=== PATIENT | male | born 1995 | race Caucasian/White ===

== ENCOUNTER 2025-03-20 11:57 | Outpatient (AMB) | payer BC, SELFPAY ==
--- NOTE | 2025-03-20 12:49 | MHC.OFFWIV ---
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 Patient Tobacco Use Status: Never used Tobacco Allergies No Known Allergies Allergy (Verified 03/20/25 14:42) Medication List - Last Reconciled 03/20/25 by KASSIE Chu- omeprazole 40 mg PO DAILY Do you need a note to return to daycare/school/sports/work: No HPI HPI Comments History of Present Illness Details History of Present Illness - The patient is a 30-year-old male presenting with abdominal pain, urethral pain, and dysuria. - Symptoms began two days ago after consuming pasta, with the onset of a growing bubble sensation and a popping sound in the abdomen. - Bloating ensued, causing severe discomfort and pain spreading across the abdomen, accompanied by sweating and chills. - He had a strong urge to urinate and sought medical attention the next morning @ [facility] ED. I do not have these records. - The patient was given an white liquid to drink, he does not know what, and prescribed medication at the emergency department to take for 2 weeks. Again unsure what. Reports no imaging and no labs done. - Pain has decreased but a tight sensation in the abdomen persists, occasionally alleviated after urination. - He reports no fever or testicular swelling. Physical Exam General: Well developed, well nourished, in no acute distress. Appears stated age. Head: Normocephalic, atraumatic. Eyes: Pupils are equal, round and reactive to light and accommodation. Conjunctivae are clear. Scleras nonicteric Lungs: Clear to auscultation bilaterally. No rales, rhonchi or wheeze noted. Good air flow in all mustafa. Heart: Regular rate and rhythm. No murmurs, click, rubs or gallops are noted. Abdomen: Bowel sounds present in all quadrants. The abdomen is soft, with a weird tightening sensation noted, and a bit of pain upon palpation of transverse lower abd. No CVAT exam benign Slow gaurded movements Results Urine WNL Discussion Notes I discussed with the patient the current symptoms. I emphasized the importance of obtaining imaging studies to rule out any serious intra-abdominal pathology, particularly due to the popping sensation and persistent tight feeling. I informed him about options for further evaluation at nearby [facility], and provided contact information for scheduling. I recommended that he proceed directly to the emergency room for evaluation and possible imaging. For future continuity of care, potential primary care providers nearby were suggested. Assessment and Plan 1. Abdominal pain The etiology of the abdominal pain is undetermined but significant enough to merit further examination through imaging at [facility]. I advised prompt evaluation to rule out potential gastrointestinal pathology. 2. Urethral pain As there were no overt signs of infection, follow-up with urology is recommended. Persistence of symptoms warrants further consideration of underlying urological causes. Patient Instructions - Proceed to [facility] Emergency Room for evaluation and potential imaging studies to assess abdominal discomfort. - Follow recommendations provided at the emergency department. - Consider consulting with a urologist if urethral pain continues. - Seek assistance from the front services agent for information on primary care providers in the area. Consent Patient was informed and verbally consented to the use of an ambient scribe for clinic note documentation during this visit. COUNTS INCLUDE 234 BEDS AT THE [facility] Social History Patient Tobacco Use Status: Never used Tobacco Physical Exam Vital Signs: Last Vital Signs Pulse 77 03/20/25 13:33 BP 110/70 03/20/25 13:33 Pulse Ox 98 03/20/25 13:33 Oxygen Delivery Method Room Air 03/20/25 13:33 Results AMB Urinalysis, Automated UA Leukoctes 0 Leonel/uL Last Edit by KODAK Cheek on 03/20/25 14:48 UA Nitrite Negative Last Edit by KODAK Cheek on 03/20/25 14:48 UA Urobilinogen 0.2 mg/dL Last Edit by Claudine Roldan CCM on 03/20/25 14:48 UA Protein 0 mg/dL Last Edit by KODAK Cheek on 03/20/25 14:48 UA pH 6.0 Last Edit by Claudine Roldan CCM on 03/20/25 14:48 UA Blood 0 Joey/uL Last Edit by Claudine Roldan CCM on 03/20/25 14:48 UA Specific [place] 1.010 Last Edit by KODAK Cheek on 03/20/25 14:48 UA Ketone Negative Last Edit by KODAK Cheek on 03/20/25 14:48 UA Bilirubin 0 mg/dL Last Edit by KODAK Cheek on 03/20/25 14:48 UA Glucose 0 mg/dL Last Edit by KODAK Cheek on 03/20/25 14:48 Results Reviewed Results Reviewed: Laboratory Last Values Urine pH (Auto) 6.0 03/20/25 14:46 Specific [place] (Auto) 1.010 03/20/25 14:46 Urine Protein (Auto) 0 mg/dL 03/20/25 14:46 Glucose (UA)(Auto) 0 mg/dL 03/20/25 14:46 Urine Ketones (Auto) Negative 03/20/25 14:46 Urine Blood (Auto) 0 Joey/uL 03/20/25 14:46 Urine Nitrite (Auto) Negative 03/20/25 14:46 Urine Bilirubin (Auto) 0 mg/dL 03/20/25 14:46 Urine Urobilinogen (Auto) 0.2 mg/dL 03/20/25 14:46 Leukocyte Esterase (Auto) 0 Leonel/uL 03/20/25 14:46 Assessment & Plan Assessment & Plan (1) Abdominal pain: Code(s): R10.9 - Unspecified abdominal pain Qualifiers: Abdominal location: lower abdomen, unspecified Qualified Code(s): R10.30 - Lower abdominal pain, unspecified (2) Urethral pain: Code(s): R39.89 - Other symptoms and signs involving the genitourinary system Plan . Orders: Orders AMB Urinalysis Automated Today Z13.9 - Encounter for screening, unspecified Patient Instructions: [facility] [address], [place] Coding Level of Care Code Est Pt Level 3 (45853) Diagnoses Lower abdominal pain R10.30 Abdominal location: lower abdomen, unspecified Urethral pain R39.89
--- OUTSIDE RECORDS SUMMARY | 2025-03-20 13:24 | XMS_ITS | Continuity of Care Document ---
Author Organization [employer] [facility] Address [address] [address] [place] [address] Phone Care Team Providers Care Hospital Account Manager Name Role Phone Celsa Smith DO Unavailable Unavailable Allergies, Adverse Reactions, Alerts Substance Reaction Status Criticality No Known Allergies Active No Inform ation Medications Medication Instructions Dosage Effective Dates (start - stop) Status Comments No Drug Therapy Prescribed Procedures Procedure Date Offic/outpt E m [facility] UA Dipstick Automated w/o Microscopy March Advance Directives Directive Yes / No Effective Date File Name No Information Encounters Encounter Description Practice Location Reason(s) For Visit Diagnoses Date Provider Providers Copied on Encounter [employer] [facility], [address] [address], [place], [place], [id number], tel:[phone] No Information Luis Steen. [address] [place], [place], [id number], . tel:[phone] Offic/outpt E m [facility], [address] [address], [place], [place], [id number], tel:[phone] [facility] Penile concerns (chief complaint)a bdominal pain (chief complaint) Penile pain Luis Steen. [address] [place], [place], [id number], . tel:[phone] Family History Family Member Type Diagnosis Age At Onset No Information Payers Payer name Insurance type Covered libertarian ID Authoriza ticynthia(s) [facility] [id number] Social History Type Description Quantity Date Captured Comments Alcohol Use Details Unknown Caffeine Use Details Unknown Tobacco Use Status No Information Smoking Status No Information Sex Male Chief Complaint And Reason For Visit No Information Reason For Referral Reason For Referral No Information History Of Present Illness Encounter Date Complaint History Of Prese nt Illness abdominal pain Penile concerns (comments) 22 yr old male here today with c/o penile tingling x2 days now. No recent intercourse, states it was 2 weeks ago. happens when lays on his back, but not when on front- slight pain barly feel some tingling sometimes goes away for a few hours. no dysuria, no fever, question some discharge. tingling mid shaft, on naproxen twice a day now. Penile concerns Functional Status Date Functional Assessmen t No Information Medications Administered Medication Instructions Dosage Effective Dates (start - stop) Status Comments No Drug Therapy Prescribed Instructions Date Instruction Additional Infor david 1- ua was normal2- c heck for GC/CHl3- if negative will refer to Urology Related to Penile pain Assessments Type Assessment Date No Information Patient Care Teams Name Effective Dates (start - stop) Status Members No Information
[2025-03-20 13:33] VITALS: BP 110/70; PULSE 77; O2SAT 98
== END 2025-03-20 14:42 | disposition home or self-care (01) ==
PROVIDERS: Visit Provider Nurse Practitioner Family
DX: R10.30 Lower abdominal pain, unspecified (principal); R39.89 Other symptoms and signs involving the genitourinary system; Z13.9 Encounter for screening, unspecified

== ENCOUNTER → 2025-03-20 11:57 | Outpatient (BNVA) | payer BC, SELFPAY | PROVIDERS: Visit Provider Nurse Practitioner Family | DX: Z13.89 Encounter for screening for other disorder (principal) ==

== ENCOUNTER 2025-03-20 14:33 | Emergency (ER) | payer BC, SELFPAY ==
--- NOTE | ~2025-03-20 | XR_ITS ---
EXAMINATION: XR ABDOMEN KUB CLINICAL INDICATION: abd pain COMPARISON: None available. TECHNIQUE: AP view of the abdomen. FINDINGS: Bowel gas pattern is normal/nonspecific. There is no focally dilated loop of bowel to suggest bowel obstruction. No significant stool retention. No evidence of organomegaly or large abdominal mass. No abnormal soft tissue calcifications. Lung bases appear clear. Mild elevation right hemidiaphragm. Chronic deformity of the right pelvis and hip joint with right hip arthroplasty in place, abundant heterotopic bone which is diffuse, and lateral plate and screw fixation of the proximal femur with 2 cerclage wires present. No suspicious osseous abnormalities. XR/XR KUB IMPRESSION: No acute findings of the abdomen. Electronically signed by: Paresh Keller MD 03/20/2025 03:11 PM EDT
--- NOTE | ~2025-03-20 | CT_ITS ---
CLINICAL HISTORY: RLQ pain, --- Additional Notes or Special Instructions: appy vs renal colic CT abdomen and pelvis without contrast Comparison: None Findings: No consolidation or effusion. The gallbladder and solid organs are within normal limits. Normal kidneys, ureters, and urinary bladder. No urinary tract calculus, obstruction, or inflammation. No bowel obstruction, pneumoperitoneum, or pneumatosis. Normal stomach, small bowel, appendix, and colon. Right total hip arthroplasty noted. Bones intact. IMPRESSION: No acute findings. This document has been electronically signed by: Carlos Sanchez MD on 03/20/2025 20:04:46
[2025-03-20 14:38] VITALS: BP 156/91; PULSE 68; RESP 20; TEMP 36.8; O2SAT 98; BMI 37.9
--- NOTE | 2025-03-20 14:38 | ED.ABDPAIN ---
HPI - Abdominal Pain General Chief Complaint: Abdominal Pain Stated Complaint: Abd pain Time Seen by Provider: 03/20/25 18:30 Source: patient Limitations: no limitations History of Present Illness ED Provider: Henna Tran PA-C HPI narrative: 30-year-old male with a history of morbid obesity presents with the abdominal pain x2 days. When the patient's symptoms began, he had associated abdominal distention. His last bowel movement was minimal, he is passing flatus from below. The abdominal distention has since resolved. Pain currently across lower abdomen, right greater than left. Pain worse with movement, with the radiation into groin, unable to describe the nature of his discomfort, but does indicate that it fluctuates in intensity. Patient initially had nausea, that resolved within a day. Patient complains of dysuria, no hematuria or history of kidney stones no fever. Denies diarrhea. Denies testicular pain or swelling, no risk for STD, the patient has been abstinent for years. Related Data Home Medications ?Medication ?Instructions ?Recorded ?Confirmed omeprazole 40 mg capsule,delayed 40 mg PO DAILY 03/20/25 03/20/25 release Previous Rx's ?Medication ?Instructions ?Recorded ketorolac 10 mg tablet 10 mg PO Q6H PRN pain #20 tabs 03/20/25 Allergies Allergy/AdvReac Type Severity Reaction Status Date / Time No Known Allergies Allergy Verified 03/20/25 14:42 Review of Systems Review of Systems Yes all other systems are reviewed and are negative Constitutional: Denies fatigue and Denies fever(s) Cardiovascular: Denies chest pain and Denies dyspnea Respiratory: Denies cough and Denies dyspnea Gastrointestinal: Reports abdominal pain, Reports constipation, Denies diarrhea, Denies nausea and Denies vomiting Genitourinary: Denies hematuria, Reports dysuria, Denies flank pain, Denies scrotal swelling and Denies testicular pain Endocrine: Denies fatigue PMFSH Past Medical History Attestation statement: The following information was validated with the patient. Social History Social History Alcohol intake: current Alcohol intake frequency: holidays/special occasions only Patient Tobacco Use Status: Never used Tobacco Smoked in Last 30 Days: No Use of substances other than those prescribed or required for medical reasons: No Advance Directives: No Advance Directives Information Provided: Yes Physical Exam ED Vital Signs: Vital Signs - 24 hr 03/20/25 14:38 03/20/25 18:35 03/20/25 20:03 Temperature 98.2 F 98.2 F 97.4 F Pulse Rate 68 62 48 L Respiratory Rate 20 20 16 Blood Pressure 156/91 H 134/89 122/59 L Pulse Oximetry 98 98 96 Oxygen Delivery Method Room Air Room Air Room Air BMI result Body Mass Index 37.9 Const Other: Alert, appears older than stated age Orientation/consciousness: patient oriented x3 Resp Effort & Inspection: normal respiratory effort Cardio Other: Normal peripheral perfusion GI Other: Abdomen is obese, nondistended, mild tenderness within right lower abdomen no guarding Skin Other: Warm dry no rash Neuro Other: Antalgic gait General: patient oriented x3, no focal motor deficits and CN's II-XI intact bilaterally Psych Other: Cooperative Course Course Course Narrative: This is a rapid medical exam performed by Amador Oconnor NP: Additional HPI, ROS, PE not included below will be deferred to primary provider. 30 yo male with no significant PMHx presents to the ED due to abdominal pain. He states he went to [facility] yesterday and did not have imaging done. Today, he is coming from walk in clinic just [employer]ELD[employer], was recommended to come to the ED for further evaluation. He reports while he was at walk in [facility] he experienced an episode of urinary urgency. He reports abd px started 2 days ago around 7pm after eating. He reports nausea, chills, bloating. He denies vomiting, black/bloody stool. PE: Plan: Medical Decision Making Medical Decision Making [facility] Narrative: 30-year-old male with a history of morbid obesity presents with the abdominal pain x2 days. When the patient's symptoms began, he had associated abdominal distention. His last bowel movement was minimal, he is passing flatus from below. The abdominal distention has since resolved. Pain currently across lower abdomen, right greater than left. Pain worse with movement, with the radiation into groin, unable to describe the nature of his discomfort, but does indicate that it fluctuates in intensity. Patient initially had nausea, that resolved within a day. Patient complains of dysuria, no hematuria or history of kidney stones no fever. Denies diarrhea. Denies testicular pain or swelling, no risk for STD, the patient has been abstinent for years. Problem: Morbid obesity, status post right hip replacement History: Per patient I have considered the following differential diagnoses: UTI, pyelonephritis, renal colic, orchitis, epididymitis, torsion, bowel obstruction, appendicitis Plan: Given right-sided symptoms I am considering early appendicitis versus renal colic given concurrent urinary symptoms. Screening labs completed, UA pending, ordering a CT scan. Giving Toradol for his discomfort. Also thought about torsion versus epididymitis and orchitis, however he has no testicular pain, swelling or redness to the region. Sounds as if patient initially had potential symptoms of bowel obstruction, however they were transient, and he is having bowel movements. Initially a KUB was obtained, there was no overt stool burden. I have independently reviewed the following tests: Labs: No leukocytosis, not anemic, no electrolyte abnormality, urine not infected CT abdomen and pelvis:Findings: No consolidation or effusion. The gallbladder and solid organs are within normal limits. Normal kidneys, ureters, and urinary bladder. No urinary tract calculus, obstruction, or inflammation. No bowel obstruction, pneumoperitoneum, or pneumatosis. Normal stomach, small bowel, appendix, and colon. Right total hip arthroplasty noted. Bones intact. IMPRESSION: No acute findings. Lab Data 03/20/25 14:59 03/20/25 14:59 Labs: Lab Results 03/20/25 03/20/25 Range/Units 14:59 19:06 WBC 7.5 (4.8-10.8) X10*3/uL RBC 5.78 (4.60-5.80) X10*6/uL Hgb 15.1 (14.0-18.0) g/dl Hct 44.0 (42.0-52.0) % MCV 76.1 L (80.0-98.0) fL MCH 26.1 L (27.0-33.0) pg MCHC 34.3 (31.0-36.0) g/dl RDW 14.3 (11.0-16.0) % Plt Count 292 (160-400) X10*3/uL MPV 9.6 (9.4-12.4) fL Immature Gran % (Auto) 0.1 (0.0-0.4) % Neut % (Auto) 66.4 (45-73) % Lymph % (Auto) 25.3 (20-40) % Stearns % (Auto) 7.0 (2-11) % Eos % (Auto) 0.7 (0-4) % Baso % (Auto) 0.5 (0-2) % Lymph # (Auto) 1.9 (1.2-4.9) X10*3/uL Stearns # (Auto) 0.5 (0.1-1.2) X10*3/uL Eos # (Auto) 0.1 (0.0-0.4) X10*3/uL Baso # (Auto) 0.0 (0.0-0.2) X10*3/uL Abs Immat Gran (auto) 0.01 (0.00-0.03) X10*3/uL Absolute Neuts (auto) 5.0 (2.0-8.3) x10*3/uL Absolute Nucleated RBC 0.000 (0.0-0.012) X10*3/uL Nucleated RBC % (auto) 0.0 (0.0-0.2) /100WBC Sodium 140 (135-145) mmol/L Potassium 3.5 (3.3-5.1) mmol/L Chloride 105 (96-108) mmol/L Carbon Dioxide 24 (22-29) mmol/L Anion Gap 15 (12-20) BUN 11 (9-16) mg/dL Creatinine 0.97 (0.5-1.4) mg/dL Estim Creat Clear Calc 143.1 Estimated GFR > 60 Random Glucose 88 (60-115) mg/dL Calcium 9.4 (8.4-10.2) mg/dL Total Bilirubin 0.6 (0.0-1.0) mg/dL AST 36 (5-37) U/L ALT 37 (0-40) U/L Alkaline Phosphatase 45 (39-117) U/L Total Protein 7.6 (6.5-8.0) g/dL Albumin 4.7 (3.5-5.0) g/dL Lipase 20 (8-78) U/L Urine Color Yellow Urine Appearance Clear Urine pH 6.0 (5.0-9.0) Ur Specific [place] 1.025 (1.005-1.025) Urine Protein Negative (Neg-Trace) mg/dL Urine Glucose (UA) Negative (Negative) mg/dL Urine Ketones 80 (Negative) mg/dL Urine Blood Negative (Negative) Urine Nitrite Negative (Negative) Ur Leukocyte Esterase Negative (Negative) Medications Administered Discontinued Medications Generic Name Dose Route Start Last Admin Trade Name Stanq PRN Reason Stop Dose Admin Ketorolac Tromethamine 15 mg 03/20/25 19:03 03/20/25 19:17 Ketorolac Tromethamine 15 Mg/Ml Vial IM 03/20/25 19:04 15 mg ONCE ONE Administration Discharge Plan Discharge Clinical Impression: Dysuria Abdominal pain Qualifiers: Abdominal location: lower abdomen, unspecified Qualified Code(s): R10.30 - Lower abdominal pain, unspecified Patient Disposition: Home, Self-Care Instructions: Constipation (ED), Dysuria (ED), Abdominal Pain (ED) Additional Instructions: All of your screening labs including a urinalysis were completely normal. The CT scan does not reveal any acute infection. You do have some retained stool, but you were not overtly constipated. See home care instructions. You can use [id number] Colace, this is a stool softener, take it daily. You can also use [id number] MiraLax, 1 to 2 times a day, until you begin having regular bowel movements. Use the ketorolac as needed for your abdominal discomfort, take this medication with food. Return precautions, which would necessitate medical assessment, for onset of severe constant abdominal pain, intractable vomiting or fever. Prescriptions: New ketorolac 10 mg tablet 10 mg PO Q6H PRN (Reason: pain) Qty: 20 0RF Rx Instructions: maximum total duration of 5 days from all oral, intranasal, or parenteral formulations. The patient received an intramuscular dose of Toradol here in the emergency department. No Action omeprazole 40 mg capsule,delayed release(DR/EC) 40 mg PO DAILY Stand Alone Forms: Work/School Release Print Language: Azerbaijani
[2025-03-20 15:03] LABS: MANUAL DIFF FLAG NO
[2025-03-20 15:04] LABS: Basophils Percent Auto 0.5 % (0-2); Eosinophils Absolute Auto 0.1 X10*3/uL (0.0-0.4); Eosinophils Percent Auto 0.7 % (0-4); Hemoglobin 15.1 g/dl (14.0-18.0); Imm Gran Abs Auto 0.01 X10*3/uL (0.00-0.03); Imm Gran Pct Auto 0.1 % (0.0-0.4); Lymphocytes Absolute Auto 1.9 X10*3/uL (1.2-4.9); Lymphocytes Percent Auto 25.3 % (20-40); Mean Corpuscular HGB Conc 34.3 g/dl (31.0-36.0); Mean Corpuscular Hemoglobin 26.1 pg (27.0-33.0); Mean Corpuscular Volume 76.1 fL (80.0-98.0); Mean Platelet Volume 9.6 fL (9.4-12.4); Monocytes Absolute Auto 0.5 X10*3/uL (0.1-1.2); Neutrophils Percent Auto 66.4 % (45-73); Platelet Count 292 X10*3/uL (160-400); Red Blood Count 5.78 X10*6/uL (4.60-5.80); Red Cell Distribution Width 14.3 % (11.0-16.0); White Blood Count 7.5 X10*3/uL (4.8-10.8)
[2025-03-20 15:34] LABS: Alanine Aminotransferase 37 U/L (0-40); Albumin Level 4.7 g/dL (3.5-5.0); Anion Gap 15 (12-20); Aspartate Amino Transferase 36 U/L (5-37); Bilirubin Total 0.6 mg/dL (0.0-1.0); Blood Urea Nitrogen 11 mg/dL (9-16); Calcium 9.4 mg/dL (8.4-10.2); Carbon Dioxide 24 mmol/L (22-29); Chloride 105 mmol/L (96-108); Creatinine Clr Calc Pharmacy 143.1; Estimated Glomerular Filt Rate > 60; Glucose Random 88 mg/dL (60-115); Lipase 20 U/L (8-78); Potassium 3.5 mmol/L (3.3-5.1); Sodium 140 mmol/L (135-145); Total Protein 7.6 g/dL (6.5-8.0)
[2025-03-20 16:08] LABS: Alkaline Phosphatase 45 U/L (39-117)
[2025-03-20 18:35] VITALS: BP 134/89; PULSE 62; RESP 20; TEMP 36.8; O2SAT 98
[2025-03-20] MEDS: Ketorolac Tromethamine 15 MG/ML VIAL IM (19:17)
[2025-03-20 20:03] VITALS: BP 122/59; PULSE 48; RESP 16; TEMP 36.3; O2SAT 96
[2025-03-20 21:01] LABS: Appearance Urine Clear; Color Urine Yellow; Glucose Urine UA Negative (Negative); Leukocyte Esterase Urine Negative (Negative); Nitrite Urine Negative (Negative); Specific Gravity - Urine 1.025 (1.005-1.025); Urine Blood Negative (Negative); Urine Ketones 80 mg/dL (Negative); Urine Protein Negative (Neg-Trace)
[2025-03-20 22:03] VITALS: BP 124/65; PULSE 46; RESP 16; TEMP 36.2; O2SAT 96
[2025-03-20 22:09] VITALS: BP 124/65; PULSE 62; RESP 16; TEMP 36.2; O2SAT 96
== END 2025-03-20 22:10 | disposition home or self-care (01) ==
PROVIDERS: Registered Nurse Emergency; Emergency Provider Emergency Medicine
DX: R10.31 Right lower quadrant pain (principal); R30.0 Dysuria
CPT/HCPCS: 36415; 74018; 74176; 80053; 81003; 83690; 85025; 96372; 99284; J1885

== ENCOUNTER → 2025-03-20 14:43 | Outpatient (BNV) | payer BC, SELFPAY | PROVIDERS: Visit Provider Radiology Diagnostic Radiology | DX: R10.31 Right lower quadrant pain (principal) | CPT/HCPCS: 74018; 74176 ==

== ENCOUNTER 2025-03-24 05:05 | Emergency (ER) | payer BC, SELFPAY ==
[2025-03-24 05:11] VITALS: BP 155/110; PULSE 63; RESP 16; TEMP 36.1; O2SAT 96; BMI 35.9
--- OUTSIDE RECORDS SUMMARY | 2025-03-24 06:55 | XMS_ITS | Clinical Summary ---
Author Organization [facility] [address] [place] [address] [address], [place] Phone Care Team Providers Care Associate Professor Of Sociology Name Role Phone Unavailable Primary Care Provider Unavailabl e Allergies No known active allergies Medications omeprazole (PriLOSEC) [address] capsule Take 1 capsule (40 mg total) by mouth 1 (one) time each day for 14 days. Do not crush or chew. 14 each 03/19/2025 5 Active Active Problems No known active problems Encounters Date Type Department Care Team Description 03/19/2025 1:28 PM EDT - 03/19/2025 3:51 PM EDT Emergency [facility] Emergency [address] [place] [address] Gastroesophageal reflux disease without esophagitis (Primary Dx); Dysuria Discharge Disposition: Home or Self Care from Last 3 Months Social History Tobacco Use Types Packs/Day Years Used Date Smoking Tobacco: Never Assessed Sex and Gender Information Value Date Recorded Sex Assigned at Male 03/21/2025 2:10 AM EDT Legal Sex Male 9:32 AM EDT Gender Identity Male 03/21/2025 2:10 AM EDT Sexual Orientation Straight 03/21/2025 2: 10 AM EDT Obstetrics History Last Filed Vital Signs Vital Sign Reading Time Taken Comments Blood Pressure 139/72 03/19/2025 2:11 PM EDT Pulse 61 03/19/2025 2:11 PM EDT Temperature 37.2 ??C (99 ??F) 03/19/2025 2:11 PM EDT Respiratory Rate 18 03/19/2025 2:11 PM EDT Oxygen Saturation 95% 03/19/2025 2:11 PM EDT Inhaled Oxygen Concentration - - Weight 120 kg (265 lb 4.8 oz) 03/19/2025 11:01 A M EDT Height 177.8 cm (5' 10 ) 03/19/2025 11:01 AM EDT Body Mass Index 38.07 03/19/2025 11:01 AM EDT Plan of Treatment Health Maintenance Due Date Last Done Comments DTaP,Tdap,and Td Vaccines (1 - Tdap) 2013 Hepatitis B Vaccines (1 of 3 - 19+ 3-dose series) 2013 COVID-19 Vaccine (2023-2 5 season) 2024 10/22/2021, 01/18/2021, 12/17/2020 Depression Screening 03/19/2025 HIV Screening 03/19/2025 Hepatitis C Screening 03/19/2025 Social Influencers of Health Screening 03/19/2025 Influenza Vaccine (Season Ended) 2025 01/14/2020, 12/03/2018 HIB Vaccines Aged Out No longer eligi ble based on patient's age to complete this topic HPV Vaccines Aged Out No longer eligi ble based on patient's age to complete this topic Hepatitis A Vaccines Aged Out No long er eligible based on patient's age to complete this topic IPV Vaccines Aged Out No longer eligi ble based on patient's age to complete this topic MMR Vaccines Aged Out No longer eligi ble based on patient's age to complete this topic Meningococcal ACWY Vaccine Aged Out N o longer eligible based on patient's age to complete this topic Meningococcal B Vaccine Aged Out No l onger eligible based on patient's age to complete this topic Pneumococcal Vaccine: Pediatrics (0 to 5 Years) and At-Risk Patients (6 to 64 Years) Aged Out No longer eligible b ased on patient's age to complete this topic RSV Immunization Patients Under 20 months Aged Out No longer eligible b ased on patient's age to complete this topic Varicella Vaccines Aged Out No longer eligible based on patient's age to complete this topic Procedures Procedure Name Priority Date/Time Associated Diagnosis Comments LEVINE URINE CULTURE TUBE STAT 03/19/2025 2:06 PM EDT URINALYSIS WITH REFLEX MICROSCOPIC AND CULTURE STAT 03/19/2025 2:06 PM EDT URINALYSIS WITH REFLEX MICROSCOPIC AND CULTURE STAT 03/19/2025 2:06 PM EDT CBC WITH AUTO DIFFERENTIAL STAT 03/19/2025 11:10 AM EDT COMPREHENSIVE METABOLIC PANEL STAT 03/19/2025 11:10 AM EDT CBC AND DIFFERENTIAL STAT 03/19/2025 11:10 AM EDT from Last 3 Months Results * (ABNORMAL) Urinalysis with reflex microscopic and culture (03/19/2025 2:06 PM EDT) Pathologist [facility] Specific [place] Urine 1.020 1.003 - 1.030 LAB URINALYSIS - AUTOMATED METHOD 03/19/2025 3:09 PM [facility] pH, Urine 6.5 5.0 - 8.0 pH LAB URINALYSIS - AUTOMATED METHOD 03/19/2025 3:09 PM [facility] Leukocytes, Urine Negative Negative LAB URINALYSIS - AUTOMATED METHOD 03/19/2025 3:09 PM [facility] Nitrite, Urine Negative Negative LAB URINALYSIS - AUTOMATED METHOD 03/19/2025 3:09 PM [facility] Protein, Urine Negative <=Trace mg/dL LAB URINALYSIS - AUTOMATED METHOD 03/19/2025 3:09 PM [facility] Glucose, Urine Negative Negative mg/dL LAB URINALYSIS - AUTOMATED METHOD 03/19/2025 3:09 PM [facility] Ketones, Urine >=80(A) Negative mg/dL LAB URINALYSIS - AUTOMATED METHOD 03/19/2025 3:09 PM [facility] Urobilinogen, Urine 0.2 0.2 - 1.0 mg/dL LAB URINALYSIS - AUTOMATED METHOD 03/19/2025 3:09 PM EDT [facility] Bilirubin, Urine Negative Negative LAB URINALYSIS - AUTOMATED METHOD 03/19/2025 3:09 PM EDT [facility] Blood, Urine Negative Negative LAB URINALYSIS - AUTOMATED METHOD 03/19/2025 3:09 PM EDT [facility] Urine Urine specimen obtained by clean catch procedure / Unknown Non-blood Collection / Unknown 03/19/2025 2:06 PM EDT 03/19/2025 2:35 PM EDT [facility] URINE ORDERABLES Final Result Performing Organization Address [facility]/ZIP Co de Phone Number [facility] [address] [place] [address], [place] [phone] * Levine urine culture tube (03/19/2025 2:06 PM EDT) Extra Tube Hold for add-ons. 03/19/2025 4:01 PM EDT [facility] Comment:Auto resulted. Urine Urine specimen obtained by clean catch procedure / Unknown Non-blood Collection / Unknown 03/19/2025 2:06 PM EDT 03/19/2025 2:35 PM EDT [facility] URINE ORDERABLES Final Result [facility] [address] [place] [address], [place] [phone] * (ABNORMAL) CBC auto differential (03/19/2025 11:10 AM EDT) WBC 8.2 4.8 - 10.8 K/[facility] LAB HEMETOLOGY METHOD 03/19/2025 11:35 AM EDT [facility] RBC 5.70(H) 4.50 - 5.50 M/mcL LAB HEMETOLOGY METHOD 03/19/2025 11:35 AM [facility] Hemoglobin 14.7 13.5 - 17.5 g/dL LAB HEMETOLOGY METHOD 03/19/2025 11:35 AM [facility] Hematocrit 44.8 42.0 - 54.0 % LAB HEMETOLOGY METHOD 03/19/2025 11:35 AM [facility] MCV 78.3(L) 79.0 - 98.0 FL LAB HEMETOLOGY METHOD 03/19/2025 11:35 AM [facility] MCH 25.7(L) 27.0 - 32.0 pcg LAB HEMETOLOGY METHOD 03/19/2025 11:35 AM [facility] MCHC 32.8 32.0 - 37.0 g/dL LAB HEMETOLOGY METHOD 03/19/2025 11:35 AM [facility] RDW 14.2 11.0 - 15.0 % LAB HEMETOLOGY METHOD 03/19/2025 11:35 AM [facility] Platelets 306 130 - 400 K/mcL LAB HEMETOLOGY METHOD 03/19/2025 11:35 AM [facility] MPV 10.1 7.0 - 11.0 FL LAB HEMETOLOGY METHOD 03/19/2025 11:35 AM [facility] NRBC 0.0 <1.0 % LAB HEMETOLOGY METHOD 03/19/2025 11:35 AM [facility] NRBC Absolute 0.00 <0.10 K/mcL LAB HEMETOLOGY METHOD 03/19/2025 11:35 AM [facility] Neutrophils Relative 74.9 % LAB HEMETOLOGY METHOD 03/19/2025 11:35 AM [facility] Lymphocytes Relative 19.2 % LAB HEMETOLOGY METHOD 03/19/2025 11:35 AM [facility] Monocytes Relative 5.4 % LAB HEMETOLOGY METHOD 03/19/2025 11:35 AM [facility] Eosinophils Relative 0.1 % LAB HEMETOLOGY METHOD 03/19/2025 11:35 AM [facility] Basophils Relative 0.2 % LAB HEMETOLOGY METHOD 03/19/2025 11:35 AM [facility] Immature Granulocytes Relative 0.2 % LAB HEMETOLOGY METHOD 03/19/2025 11:35 AM [facility] Neutrophils Absolute 6.12 1.50 - 7.00 K/mcL LAB HEMETOLOGY METHOD 03/19/2025 11:35 AM [facility] Lymphocytes Absolute 1.57 1.00 - 5.00 K/mcL LAB HEMETOLOGY METHOD 03/19/2025 11:35 AM [facility] Monocytes Absolute 0.44 0.20 - 1.00 K/mcL LAB HEMETOLOGY METHOD 03/19/2025 11:35 AM [facility] Eosinophils Absolute 0.01 0.00 - 0.50 K/mcL LAB HEMETOLOGY METHOD 03/19/2025 11:35 AM [facility] Basophils Absolute 0.02 0.00 - 0.20 K/mcL LAB HEMETOLOGY METHOD 03/19/2025 11:35 AM [facility] Immature Granulocytes Absolute 0.02 0.00 - 0.03 K/mcL LAB HEMETOLOGY METHOD 03/19/2025 11:35 AM [facility] Blood Venous blood specimen / Unknown Venipuncture / Unknown 03/19/2025 11:10 AM EDT 03/19/2025 11:18 AM EDT us Chava Hernandez MD LAB BLOOD ORDERABLES Final Resu lt [facility] [address] [place] [address], * Comprehensive metabolic panel (03/19/2025 11:10 AM EDT) Sodium 140 133 - 145 mmol/L LAB CHEMISTRY METHOD 03/19/2025 11:57 AM EDT [facility] Potassium 3.5 3.5 - 5.5 mmol/L LAB CHEMISTRY METHOD 03/19/2025 11:57 AM EDT [facility] Chloride 108 96 - 110 mmol/L LAB CHEMISTRY METHOD 03/19/2025 11:57 AM [facility] CO2 24 21 - 32 mmol/L LAB CHEMISTRY METHOD 03/19/2025 11:57 AM [facility] Anion Gap 8 3 - 11 LAB CHEMISTRY METHOD 03/19/2025 11:57 AM [facility] Glucose 98 70 - 100 mg/dL LAB CHEMISTRY METHOD 03/19/2025 11:57 AM [facility] BUN 7 5 - 25 mg/dL LAB CHEMISTRY METHOD 03/19/2025 11:57 AM [facility] Creatinine 0.98 0.70 - 1.30 mg/dL LAB CHEMISTRY METHOD 03/19/2025 11:57 AM [facility] eGFR 106 >=60 mL/min/1. 73m2 LAB CHEMISTRY METHOD 03/19/2025 11:57 AM [facility] Comment:Calculation based on the Chronic Kidney Disease Epidemiology Collaboration (CKD-EPI) equation refit without adjustment for race. BUN/Creatinine Ratio 7.1 LAB CHEMISTRY METHOD 03/19/2025 11:57 AM [facility] Calcium 9.5 8.5 - 10.5 mg/dL LAB CHEMISTRY METHOD 03/19/2025 11:57 AM [facility] AST (SGOT) 26 10 - 42 unit/L LAB CHEMISTRY METHOD 03/19/2025 11:57 AM EDT [facility] ALT (SGPT) 40 10 - 60 unit/L LAB CHEMISTRY METHOD 03/19/2025 11:57 AM EDT [facility] Alkaline Phosphatase 52 42 - 121 unit/L LAB CHEMISTRY METHOD 03/19/2025 11:57 AM EDT [facility] Total Protein 7.7 6.0 - 8.0 g/dL LAB CHEMISTRY METHOD 03/19/2025 11:57 AM EDT [facility] Albumin 4.6 3.2 - 5.0 g/dL LAB CHEMISTRY METHOD 03/19/2025 11:57 AM EDT [facility] Total Bilirubin 0.6 0.0 - 1.4 mg/dL LAB CHEMISTRY METHOD 03/19/2025 11:57 AM EDT [facility] Blood Venous blood specimen / Unknown Venipuncture / Unknown 03/19/2025 11:10 AM EDT 03/19/2025 11:18 AM EDT us Chava Hernandez MD LAB BLOOD ORDERABLES Final Resu lt [facility] [address] [place] [address], [place] [phone] from Last 3 Months Insurance [facility]
--- OUTSIDE RECORDS SUMMARY | 2025-03-24 06:55 | XMS_ITS | Continuity of Care Document ---
Author Organization [employer] [facility] Address [address] [address] [place] [address] Phone Care Team Providers Care Forms Designer Name Role Phone Celsa Smith DO Unavailable Unavailable Allergies, Adverse Reactions, Alerts Substance Reaction Status Criticality No Known Allergies Active No Inform ation Medications Medication Instructions Dosage Effective Dates (start - stop) Status Comments No Drug Therapy Prescribed Procedures Procedure Date Offic/outpt E m [facility] UA Dipstick Automated w/o Microscopy March Advance Directives Directive Yes / No Effective Date File Name No Information Encounters Encounter Description Practice Location Reason(s) For Visit Diagnoses Date Provider Providers Copied on Encounter [employer] [facility], [address] [address], [place], [place], [id number], tel:[phone] No Information Luis Steen. [address] [place], [place], [id number], . tel:[phone] Offic/outpt E m [facility] [employer] [facility], [address] [address], [place], [place], [id number], tel:[phone] [facility] Penile concerns (chief complaint)a bdominal pain (chief complaint) Penile pain Luis Steen. [address] [place], [place], [id number], . tel:[phone] Family History Family Member Type Diagnosis Age At Onset No Information Payers Payer name Insurance type Covered libertarian ID Authoriza ticynthia(s) [facility] [id number] Social History Type Description Quantity Date Captured [...]
--- OUTSIDE RECORDS SUMMARY | 2025-03-24 06:55 | XMS_ITS | Encounter Summary ---
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 Emergency [address] [place] [address] Gastroesophageal reflux disease without esophagitis (Primary Dx); Dysuria Discharge Disposition: Home or Self Care Social History Tobacco Use Types Packs/Day Years Used Date Smoking Tobacco: Never Assessed Sex and Gender Information Value Date Recorded Sex Assigned at Male 03/21/2025 2:10 AM EDT Legal Sex Male 9:32 AM EDT Gender Identity Male 03/21/2025 2:10 AM EDT Sexual Orientation Straight 03/21/2025 2: 10 AM EDT documented as of this encounter Last Filed Vital Signs Vital Sign Reading [...] Mass Index 38.07 03/19/2025 11:01 AM EDT documented in this encounter Discharge Instructions * Discharge Instructions* BAKARI Caruso - 03/19/2025 3:21 PM EDT I am discharging you home with omeprazole that you can take once daily for the next 2 weeks. Additionally, I would like you to follow-up with urology as an outpatient if your dysuria persists. [facility] can be reached by calling [phone]. Please call tomorrow to schedule outpatient follow-up. If you do not have a PCP of record, referrals are given. Follow up with your primary provider. Call tomorrow for appointment. Return to Emergency Department if symptoms worsen, do not improve, or any other concern. Get well soon! Thank you for coming to the [facility] Emergency Department today. Our entire team works together to provide you with the best care possible. Examination and treatment you received in the emergency department has been rendered on an EMERGENCY basis only. It is not intended to be a substitute for or an effort to provide complete medical care. You should follow-up with your primary care provider. Please report to your physician any new or remaining problems, because it is impossible to recognize and treat all elements of injury or illness in a single emergency department visit. In the event that you're unable to obtain a followup appointment in a timely fashion, OR you are not getting any better, OR you are getting worse, OR you develop any symptoms of concern, please return here immediately for further evaluation. The emergency department is open 24 hours a day, 7 days aweek. Your discharge report is based on information that was available when you were in the emergency department. If you do not have a primary care provider, please contact one of the following to make arrangements to follow up. Asya Bernard Asya Melstone [facility] * Attachments The following attachments cannot be sent through Care Everywhere. * Acid-Reducing Medicines: General Info (Albanian) documented in this encounter Medications at Time of Discharge omeprazole (PriLOSEC) [address] capsule Take 1 capsule (40 mg total) by mouth 1 (one) time each day for 14 days. Do not crush or chew. 14 each 03/19/2025 04/02/2025 documented as of this encounter Ordered Prescriptions Prescription Sig Dispense Quantity Refills Last Filled Start Date End Date omeprazole (PriLOSEC) [address] capsule Take 1 capsule (40 mg total) by mouth 1 (one) time each day for 14 days. Do not crush or chew. 14 each 03/19/2025 documented in this encounter Discharge Disposition Disposition Code Departure Means Destination Comment s Home or Self Care Pt ambulatory out of ed with steady gait. documented in this encounter Progress Notes * Cam Leger RN - 03/19/2025 10:57 AM EDT Patient states he has had bloating,abdominal pain, after eating last night. States has had gallbladder removed. * BAKARI Caruso - 03/19/2025 10:55 AM EDT Emergency Medicine Note Patient Name: Shayy Harris Initial Evaluation: 03/19/2025 : 1995 Patient's PCP: No primary care provider on file. Emergency Physician: BAKARI Caruso History of Present Illness Chief Complaint: Chief Complaint Patient presents with Abdominal Pain This is a 30-year-old male with no stated past medical or surgical history presenting for evaluation of abdominal pain and bloating after eating pasta with meat sauce last night at approximately 6:30PM. After eating last evening the patient states that he felt abdominal bloating and abdominal tightness followed by dysuria which persists this morning. Additionally, this morning he was experiencing significant flatus and eructations and the abdominal discomfort and dysuria persist. Patient denies having any fevers, chills, nausea, vomiting, penile discharge or hematuria. He has not taken any medication for treatment of his symptoms. ROS: I have performed a ROS with the pertinent positives and negatives documented in the history ofpresent illness. Previous History History reviewed. No pertinent past medical history. History reviewed. No pertinent surgical history. No family history on file. has No Known Allergies. No current facility-administered medications on file prior to encounter. No current outpatient medications on file prior to encounter. Physical Exam ED Triage Vitals [03/19/25 1101] Temp Heart Rate Resp BP 36.7 ??C (98 ??F) 103 20 (!) 153/98 SpO2 Temp Source Heart Rate Source Patient Position 96 % Oral -- -- BP Location FiO2 (%) -- -- Physical Exam General: awake, calm, cooperative, no apparent distress, vital signs reviewed Skin: warm, dry, no diaphoresis Cardiovascular: regular rate and rhythm, no murmur Gastrointestinal: soft, epigastric and suprapubic tenderness, no flank tenderness bilaterally, abdomen is nondistended, normal active bowel sounds Neurological: alert and oriented X3, no focal deficits Psychiatric: stable mood and affect, fluid speech, good eye contact Results Labs Reviewed CBC WITH AUTO DIFFERENTIAL - Abnormal Result Value WBC 8.2 RBC 5.70 (*) Hemoglobin 14.7 Hematocrit 44.8 MCV 78.3 (*) MCH 25.7 (*) MCHC 32.8 RDW 14.2 Platelets 306 MPV 10.1 NRBC 0.0 NRBC Absolute 0.00 Neutrophils Relative 74.9 Lymphocytes Relative 19.2 Monocytes Relative 5.4 Eosinophils Relative 0.1 Basophils Relative 0.2 Immature Granulocytes Relative 0.2 Neutrophils Absolute 6.12 Lymphocytes Absolute 1.57 Monocytes Absolute 0.44 Eosinophils Absolute 0.01 Basophils Absolute 0.02 Immature Granulocytes Absolute 0.02 URINALYSIS WITH REFLEX MICROSCOPIC AND CULTURE - Abnormal Specific [place] Urine 1.020 pH, Urine 6.5 Leukocytes, Urine Negative Nitrite, Urine Negative Protein, Urine Negative Glucose, Urine Negative Ketones, Urine >=80 (*) Urobilinogen, Urine 0.2 Bilirubin, Urine Negative Blood, Urine Negative COMPREHENSIVE METABOLIC PANEL - Normal Sodium 140 Potassium 3.5 Chloride 108 CO2 24 Anion Gap 8 Glucose 98 BUN 7 Creatinine 0.98 eGFR 106 BUN/Creatinine Ratio 7.1 Calcium 9.5 AST (SGOT) 26 ALT (SGPT) 40 Alkaline Phosphatase 52 Total Protein 7.7 Albumin 4.6 Total Bilirubin 0.6 CBC AND DIFFERENTIAL Narrative: The following orders were created for panel order CBC and differential. Procedure Abnormality Status --------- ------ CBC auto differential[[id number]] Abnormal Final result Please view results for these tests on the individual orders. URINALYSIS WITH REFLEX MICROSCOPIC AND CULTURE Narrative: The following orders were created for panel order Urinalysis with reflex microscopic and culture. Procedure Abnormality Status --------- ------ Urinalysis with reflex ...[[id number]] Abnormal Final result Levine urine culture tube[[id number]] In process Please view results for these tests on the individual orders. Abnormal Labs Reviewed CBC WITH AUTO DIFFERENTIAL - Abnormal; Notable for the following components: Result Value RBC 5.70 (*) MCV 78.3 (*) MCH 25.7 (*) All other components within normal limits URINALYSIS WITH REFLEX MICROSCOPIC AND CULTURE - Abnormal; Notable for the following components: Ketones, Urine >=80 (*) All other components within normal limits No orders to display I have discussed the incidental/abnormal imaging and/or lab abnormalities with the patient and haveinstructed them the need for further evaluation and workup with their primary care doctor. The laboratory results, imaging results and other diagnostic exam results were reviewed in the EMR. EKG Interpretation Critical Care Time None ? Differential Diagnosis Gastritis Gastroesophageal reflux disease Cholelithiasis Acute UTI Medical Decision Making Medical Decision Making Patient is evaluated. His medical and surgical history are reviewed. Patient will be given a GI cocktail while his laboratories and urinalysis are pending. Medications aluminum-magnesium hydroxide-simethicone (MAALOX) 200-200-20 mg/5 mL suspension 30 mL (30 mL oral Given 03/19/251425) lidocaine (XYLOCAINE) 2 % mouth solution 15 mL (15 mL Mouth/Throat Given 03/19/251425) ED Course as of 03/19/25 [id number] 19, [id number] Patient is reevaluated and states that his abdominal pain has resolved after the GI cocktail. Patient will be discharged home with omeprazole. There are no acute findings noted on urinalysis andpatient will be referred to urology as an outpatient. [RO] ED Course User Index [RO] BAKARI Caruso Clinical Impressions as of 03/19/25 1522 Gastroesophageal reflux disease without esophagitis Dysuria Procedures Procedures Diagnosis 1. Gastroesophageal reflux disease without esophagitis 2. Dysuria Disposition Discharge ED Prescriptions Medication Sig Dispense Start Date End Date Auth. Provider omeprazole (PriLOSEC) [address] capsule Take 1 capsule (40 mg total) by mouth 1 (one) time each day for 14 days. Do not crush or chew. 14 each 03/19/2025 04/02/2025 BAKARI Caruso Physician Attestation BAKARI Caruso 03/19/25 1408 BAKARI Caruso 03/19/25 1523 Cosigned by Markell Ji DO at 03/19/2025 8:52 PM EDT documented in this encounter Plan of Treatment Not on file documented as of this encounter Procedures Procedure Name Priority Date/Time Associated Diagnosis Comments URINALYSIS WITH REFLEX MICROSCOPIC AND CULTURE STAT 03/19/2025 2:06 PM EDT LEVINE URINE CULTURE TUBE STAT 03/19/2025 2:06 PM EDT URINALYSIS WITH REFLEX MICROSCOPIC AND CULTURE STAT 03/19/2025 2:06 PM EDT CBC WITH AUTO DIFFERENTIAL STAT 03/19/2025 11:10 AM EDT CBC AND DIFFERENTIAL STAT 03/19/2025 11:10 AM EDT COMPREHENSIVE METABOLIC PANEL STAT 03/19/2025 11:10 AM EDT documented in this encounter Results * Levine urine culture tube (03/19/2025 2:06 PM EDT) Extra Tube Hold for add-ons. 03/19/2025 4:01 PM EDT [facility] Comment:Auto resulted. Urine Urine specimen obtained by clean catch procedure / Unknown Non-blood Collection / Unknown 03/19/2025 2:06 PM EDT 03/19/2025 2:35 PM EDT [facility] URINE ORDERABLES Final Result [facility] [address] [place] [address], [place] [phone] * (ABNORMAL) Urinalysis with reflex microscopic and culture (03/19/2025 2:06 PM EDT) Specific [place] Urine 1.020 1.003 - 1.030 LAB URINALYSIS - AUTOMATED METHOD 03/19/2025 3:09 PM [facility] pH, Urine 6.5 5.0 - 8.0 pH LAB URINALYSIS - AUTOMATED METHOD 03/19/2025 3:09 PM [facility] Leukocytes, Urine Negative Negative LAB URINALYSIS - AUTOMATED METHOD 03/19/2025 3:09 PM [facility] Nitrite, Urine Negative Negative LAB URINALYSIS - AUTOMATED METHOD 03/19/2025 3:09 PM [facility] Protein, Urine Negative <=Trace mg/dL LAB URINALYSIS - AUTOMATED METHOD 03/19/2025 3:09 PM [facility] Glucose, Urine Negative Negative mg/dL LAB URINALYSIS - AUTOMATED METHOD 03/19/2025 3:09 PM [facility] Ketones, Urine >=80(A) Negative mg/dL LAB URINALYSIS - AUTOMATED METHOD 03/19/2025 3:09 PM [facility] Urobilinogen, Urine 0.2 0.2 - 1.0 mg/dL LAB URINALYSIS - AUTOMATED METHOD 03/19/2025 3:09 PM [facility] Bilirubin, Urine Negative Negative LAB URINALYSIS - AUTOMATED METHOD 03/19/2025 3:09 PM EDT [facility] Blood, Urine Negative Negative LAB URINALYSIS - AUTOMATED METHOD 03/19/2025 3:09 PM T [facility] Urine Urine specimen obtained by clean catch procedure / Unknown Non-blood Collection / Unknown 03/19/2025 2:06 PM EDT 03/19/2025 2:35 PM EDT us [facility] URINE ORDERABLES Final Result [facility] [address] [place] [address], * (ABNORMAL) CBC auto differential (03/19/2025 11:10 AM EDT) WBC 8.2 4.8 - 10.8 K/mcL LAB HEMETOLOGY METHOD 03/19/2025 11:35 AM [facility] RBC 5.70(H) 4.50 - 5.50 M/mcL LAB HEMETOLOGY METHOD 03/19/2025 11:35 AM [facility] Hemoglobin 14.7 13.5 - 17.5 g/dL LAB HEMETOLOGY METHOD 03/19/2025 11:35 AM [facility] Hematocrit 44.8 42.0 - 54.0 % LAB HEMETOLOGY METHOD 03/19/2025 11:35 AM [facility] MCV 78.3(L) 79.0 - 98.0 FL LAB HEMETOLOGY METHOD 03/19/2025 11:35 AM [facility] MCH 25.7(L) 27.0 - 32.0 pcg LAB HEMETOLOGY METHOD 03/19/2025 11:35 AM [facility] MCHC 32.8 32.0 - 37.0 g/dL LAB HEMETOLOGY METHOD 03/19/2025 11:35 AM [facility] RDW 14.2 11.0 - 15.0 % LAB HEMETOLOGY METHOD 03/19/2025 11:35 AM [facility] Platelets 306 130 - 400 K/[facility] LAB HEMETOLOGY METHOD 03/19/2025 11:35 AM [facility] MPV 10.1 7.0 - 11.0 FL LAB HEMETOLOGY METHOD 03/19/2025 11:35 AM [facility] NRBC 0.0 <1.0 % LAB HEMETOLOGY METHOD 03/19/2025 11:35 AM [facility] NRBC Absolute 0.00 <0.10 K/mcL LAB HEMETOLOGY METHOD 03/19/2025 11:35 AM [facility] Neutrophils Relative 74.9 % LAB HEMETOLOGY METHOD 03/19/2025 11:35 AM [facility] Lymphocytes Relative 19.2 % LAB HEMETOLOGY METHOD 03/19/2025 11:35 AM [facility] Monocytes Relative 5.4 % LAB HEMETOLOGY METHOD 03/19/2025 11:35 AM [facility] Eosinophils Relative 0.1 % LAB HEMETOLOGY METHOD 03/19/2025 11:35 AM [facility] Basophils Relative 0.2 % LAB HEMETOLOGY METHOD 03/19/2025 11:35 AM [facility] Immature Granulocytes Relative 0.2 % LAB HEMETOLOGY METHOD 03/19/2025 11:35 AM [facility] Neutrophils Absolute 6.12 1.50 - 7.00 K/mcL LAB HEMETOLOGY METHOD 03/19/2025 11:35 AM [facility] Lymphocytes Absolute 1.57 1.00 - 5.00 K/mcL LAB HEMETOLOGY METHOD 03/19/2025 11:35 AM EDT [facility] Monocytes Absolute 0.44 0.20 - 1.00 K/mcL LAB HEMETOLOGY METHOD 03/19/2025 11:35 AM EDT [facility] Eosinophils Absolute 0.01 0.00 - 0.50 K/[facility] LAB HEMETOLOGY METHOD 03/19/2025 11:35 AM EDT [facility] Basophils Absolute 0.02 0.00 - 0.20 K/[facility] LAB HEMETOLOGY METHOD 03/19/2025 11:35 AM EDT [facility] Immature Granulocytes Absolute 0.02 0.00 - 0.03 K/[facility] 03/19/2025 11:35 AM [facility] Blood Venous blood specimen / Unknown Venipuncture / Unknown 03/19/2025 11:10 AM EDT 03/19/2025 11:18 AM EDT us Chava Hernandez MD LAB BLOOD ORDERABLES Final Resu lt [facility] [address] [place] [address], * Comprehensive metabolic panel (03/19/2025 11:10 AM EDT) Sodium 140 133 - 145 mmol/L LAB CHEMISTRY METHOD 03/19/2025 11:57 AM [facility] Potassium 3.5 3.5 - 5.5 mmol/L LAB CHEMISTRY METHOD 03/19/2025 11:57 AM [facility] Chloride 108 96 - 110 mmol/L LAB CHEMISTRY METHOD 03/19/2025 11:57 AM [facility] CO2 24 21 - 32 mmol/L LAB CHEMISTRY METHOD 03/19/2025 11:57 AM [facility] Anion Gap 8 3 - 11 LAB CHEMISTRY METHOD 03/19/2025 11:57 AM [facility] Glucose 98 70 - 100 mg/dL LAB CHEMISTRY METHOD 03/19/2025 11:57 AM [facility] BUN 7 5 - 25 mg/dL LAB CHEMISTRY METHOD 03/19/2025 11:57 AM [facility] Creatinine 0.98 0.70 - 1.30 mg/dL LAB CHEMISTRY METHOD 03/19/2025 11:57 AM [facility] eGFR 106 >=60 mL/min/1. 73m2 LAB CHEMISTRY METHOD 03/19/2025 11:57 AM [facility] Comment:Calculation based on the Chronic Kidney Disease Epidemiology Collaboration (CKD-EPI) equation refit without adjustment for race. BUN/Creatinine Ratio 7.1 LAB CHEMISTRY METHOD 03/19/2025 11:57 AM [facility] Calcium 9.5 8.5 - 10.5 mg/dL LAB CHEMISTRY METHOD 03/19/2025 11:57 AM [facility] AST (SGOT) 26 10 - 42 unit/L LAB CHEMISTRY METHOD 03/19/2025 11:57 AM [facility] ALT (SGPT) 40 10 - 60 unit/L LAB CHEMISTRY METHOD 03/19/2025 11:57 AM [facility] Alkaline Phosphatase 52 42 - 121 unit/L LAB CHEMISTRY METHOD 03/19/2025 11:57 AM [facility] Total Protein 7.7 6.0 - 8.0 g/dL LAB CHEMISTRY METHOD 03/19/2025 11:57 AM [facility] Albumin 4.6 3.2 - 5.0 g/dL LAB CHEMISTRY METHOD 03/19/2025 11:57 AM [facility] Total Bilirubin 0.6 0.0 - 1.4 mg/dL LAB CHEMISTRY METHOD 03/19/2025 11:57 AM [facility] Blood Venous blood specimen / Unknown Venipuncture / Unknown 03/19/2025 11:10 AM EDT 03/19/2025 11:18 AM EDT us Chava Hernandez MD LAB BLOOD ORDERABLES Final Resu lt [facility] [address] [place] [address], documented in this encounter Visit Diagnoses Diagnosis Gastroesophageal reflux disease without esophagitis- Primary Esophageal reflux Dysuria documented in this encounter Administered Medications Inactive Administered Medications - up to 3 most recent administrations Medication Order MAR Action Action Date Dose Rate Site aluminum-magnesium hydroxide-simethicone (MAALOX) 200-200-20 mg/5 mL suspension 30 mL 30 mL, oral, Once, On Mon03/19/25 at 1405, For 1 dose Given 03/19/2025 2:26 PM EDT 30 mL lidocaine (XYLOCAINE) 2 % mouth solution 15 mL 15 mL, Mouth/Throat, Once, On Mon03/19/25 at 1405, For 1 dose Given 03/19/2025 2:26 PM EDT 15 mL documented in this encounter Active and Recently Administered Medications Times are shown in EDT. Scheduled Medication Order 03/17/2025 03/18/2025 03/19/2025 aluminum-magnesium hydroxide-simethicone (MAALOX) 200-200-20 mg/5 mL suspension 30 mL (COMPLETED) 30 mL, oral, Once, On Mon03/19/25 at 1405, For 1 dose 1426 (Given - Provid er: Sammie Root RN) lidocaine (XYLOCAINE) 2 % mouth solution 15 mL (COMPLETED) 15 mL, Mouth/Throat, Once, On Mon03/19/25 at 1405, For 1 dose 1426 (Given - Provid er: Sammie Root RN) documented in this encounter
[2025-03-24 08:26] VITALS: BP 127/69; PULSE 69; RESP 16; TEMP 36.4; O2SAT 96
--- NOTE | 2025-03-24 08:55 | PC.NURSE ---
pt is alert and oriented, skin appropriate for ethnicity, respirations even and unlabored, pt reports since Monday having this lower abd pain that radiates to both of his testicles and the penis, denies swelling in the testicles or the penis but does reports pain in the head of the penis after he urinates, denies sexual interactions for the the last three years no penile discharge according the pt, has lots of pain when ambulating, lower abd pain is a 7/10 according to the pt the abd feels bloated/pressure, lower abd does feel tight, denies nausea, does report being seen in the [place] ED on Monday and was told he was constipated -has been using laxatives and reports that he has been moving his bowel for the last few days
[2025-03-24 09:03] LABS: MANUAL DIFF FLAG NO
[2025-03-24 09:06] LABS: Basophils Percent Auto 0.6 % (0-2); Eosinophils Percent Auto 0.6 % (0-4); Hematocrit 46.1 % (42.0-52.0); Hemoglobin 15.4 g/dl (14.0-18.0); Imm Gran Abs Auto 0.01 X10*3/uL (0.00-0.03); Imm Gran Pct Auto 0.1 % (0.0-0.4); Lymphocytes Absolute Auto 1.6 X10*3/uL (1.2-4.9); Lymphocytes Percent Auto 23.5 % (20-40); Mean Corpuscular HGB Conc 33.4 g/dl (31.0-36.0); Mean Corpuscular Hemoglobin 25.8 pg (27.0-33.0); Mean Corpuscular Volume 77.2 fL (80.0-98.0); Mean Platelet Volume 9.8 fL (9.4-12.4); Monocytes Absolute Auto 0.5 X10*3/uL (0.1-1.2); Monocytes Percent Auto 7.4 % (2-11); Neutrophils Absolute Auto 4.6 x10*3/uL (2.0-8.3); Neutrophils Percent Auto 67.8 % (45-73); Platelet Count 297 X10*3/uL (160-400); Red Blood Count 5.97 X10*6/uL (4.60-5.80); Red Cell Distribution Width 14.1 % (11.0-16.0); White Blood Count 6.8 X10*3/uL (4.8-10.8)
[2025-03-24 09:19] LABS: Appearance Urine Clear; Color Urine Yellow; Glucose Urine UA Negative (Negative); Leukocyte Esterase Urine Negative (Negative); Nitrite Urine Negative (Negative); PH 6.5 (5.0-9.0); Specific Gravity - Urine 1.025 (1.005-1.025); Urine Blood Negative (Negative); Urine Ketones 80 mg/dL (Negative); Urine Protein Negative (Neg-Trace)
[2025-03-24 09:20] LABS: Alanine Aminotransferase 34 U/L (0-40); Albumin Level 4.9 g/dL (3.5-5.0); Alkaline Phosphatase 49 U/L (39-117); Anion Gap 15 (12-20); Aspartate Amino Transferase 29 U/L (5-37); Bilirubin Direct 0.2 mg/dL (0.0-0.5); Bilirubin Total 0.7 mg/dL (0.0-1.0); Blood Urea Nitrogen 10 mg/dL (9-16); Calcium 9.6 mg/dL (8.4-10.2); Carbon Dioxide 24 mmol/L (22-29); Chloride 106 mmol/L (96-108); Creatinine Clr Calc Pharmacy 145.1; Estimated Glomerular Filt Rate > 60; Glucose Random 87 mg/dL (60-115); Lipase 23 U/L (8-78); Potassium 3.7 mmol/L (3.3-5.1); Sodium 141 mmol/L (135-145); Total Protein 7.9 g/dL (6.5-8.0)
--- NOTE | 2025-03-24 09:20 | MHC.EDTECH ---
Patient was bladder scanned, PVR was 11 mLs
--- NOTE | 2025-03-24 09:37 | ED_ITS ---
HPI - Male Genitourinary General Chief complaint: Urogenital-Male Stated complaint: genital pain Time Seen by Provider: 03/24/25 08:48 Source: patient, RN notes reviewed and old records reviewed Mode of arrival: ambulatory Limitations: no limitations History of Present Illness ED Provider: Barber Pettit PA-C HPI Narrative: 30 yo male without significant past medical history who presents to ED for ongoing lower abdominal, base of penis pain. Indicates the pain started about 5 days ago. Admits going to [facility] for these complaints after a meal on Monday evening where he was treated with chalky white liquid medicine that helped. Was told he was constipated. Came to [facility] ED on 03/20/25 for same complaints, has been passing flatus, having regular bowel movements after using OTC laxatives. Denies hematuria, or difficulty with urination, denies any recent sexual activity x 3 years or masturbation x 2 weeks. Negative for penile discharge, scrotal or rectal pain, no dark or blood tinged stools or urine. Denies N/V, changes to appetite. MD Complaint: other (penil pain, base of penis ) Onset (ago): day(s) Duration: constant Location: penis Radiation: abdomen (suprpubic) Severity: similar to previous episodes Quality: other (throbbing ) Relieving factors: none Associated symptoms: Reports denies other symptoms Related Data Sexually active: No Home Medications ?Medication ?Instructions ?Recorded ?Confirmed omeprazole 40 mg capsule,delayed 40 mg PO DAILY 03/20/25 03/20/25 release Previous Rx's ?Medication ?Instructions ?Recorded ketorolac 10 mg tablet 10 mg PO Q6H PRN pain #20 tabs 03/20/25 Allergies Allergy/AdvReac Type Severity Reaction Status Date / Time No Known Allergies Allergy Verified 03/24/25 05:19 Review of Systems 2 Review of Systems: Yes all other systems are reviewed and are negative PMFSH Social History Social History Alcohol intake: current Alcohol intake frequency: holidays/special occasions only Patient Tobacco Use Status: Never used Tobacco Smoked in Last 30 Days: No Use of substances other than those prescribed or required for medical reasons: No Advance Directives: No Advance Directives Information Provided: Yes Do you have a plan to hurt others: No Plan Physical Exam 2 Vital Signs: Vital Signs: Last Vital Signs Temp 97.5 F 03/24/25 12:15 Pulse 69 03/24/25 12:15 Resp 16 03/24/25 12:15 BP 127/69 03/24/25 12:15 Pulse Ox 96 03/24/25 12:15 O2 Del Method Room Air 03/24/25 12:15 BMI result Body Mass Index 35.9 Appearance: Alert. Oriented X3. No acute distress. Head: normocephalic, atraumatic. Eyes: Pupils equal, round and reactive to light. ENT: Pharynx normal. No tonsillar swelling or exudate. Neck: Normal inspection. Neck supple. CVS: Normal heart rate and rhythm. Pulses normal. Respiratory: No respiratory distress. Breath sounds normal. Abdomen: Obese, Soft and nontender. +BS x4. No CVA tenderness : normal inspection of exernal genitalia, no scrotal swelling. foreskin easily retractable, normal glans. normal appearing penis and associated structures. no rashes or lesions. no urethral drainage. mild tenderness at the base of the penis. no apprecaited hernias or masses Skin: Skin warm and dry. Normal skin color. Normal skin turgor. No rashes. Extremities: No lower extremity edema. No joint swelling. Neuro/psych: Oriented X 3. No motor deficit. No sensory deficit. CN II-XII intact. Normal speech and cognition. Medications Administered Discontinued Medications Generic Name Dose Route Start Last Admin Trade Name Freq PRN Reason Stop Dose Admin Acetaminophen 975 mg 03/24/25 09:26 03/24/25 09:54 Acetaminophen 325 Mg Tablet PO 03/24/25 09:27 975 mg ONCE ONE Administration Ibuprofen 600 mg 03/24/25 09:26 03/24/25 09:53 Ibuprofen 600 Mg Tablet PO 03/24/25 09:27 600 mg ONCE ONE Administration Medical Decision Making Medical Decision Making MDM Narrative: 30-year-old male presents to the ER for evaluation of penile pain for the last 6 days. He reports initially started as lower abdominal pain and has since radiated to the base of his penis. Previous ER visit reviewed, he had a normal CT scan, labs and UA. Today labs were repeated and there is no leukocytosis, renal function is normal. Urinalysis does not have any red blood cells or evidence of infection. Physical exam is unremarkable. Patient developed bout of severe pain that radiates to his right flank. Limited ultrasound performed and did not appreciate any hydronephrosis. given Motrin and Tylenol with significant improvement in his symptoms. Unclear etiology of his symptomatology, there does not appear to be any acute, life- threatening process going on today. Given his recent negative imaging, reassuring physical exam and lab workup, at this time is stable for discharge home with [id number] pain medication, outpatient Urology follow-up If no improvement. Differential Diagnosis Differential Diagnoses: The differential diagnosis associated with the presentation includes STI, balantitis, hernia, UTI, Peyronie's disease, kidney stone Admission/Observation Consideration of admission/observation: Escalation of care including admission/observation considered Lab Data MDM Lab Attestation statement: I reviewed the patient's lab results. No leukocytosis, normal renal function, no major metabolic derangement 03/24/25 08:47 03/24/25 08:46 Labs: Lab Results 03/24/25 03/24/25 03/24/25 Range/Units 08:46 08:47 09:13 WBC 6.8 (4.8-10.8) X10*3/uL RBC 5.97 H (4.60-5.80) X10*6/uL Hgb 15.4 (14.0-18.0) g/dl Hct 46.1 (42.0-52.0) % MCV 77.2 L (80.0-98.0) fL MCH 25.8 L (27.0-33.0) pg MCHC 33.4 (31.0-36.0) g/dl RDW 14.1 (11.0-16.0) % Plt Count 297 (160-400) X10*3/uL MPV 9.8 (9.4-12.4) fL Immature Gran % (Auto) 0.1 (0.0-0.4) % Neut % (Auto) 67.8 (45-73) % Lymph % (Auto) 23.5 (20-40) % Glenn % (Auto) 7.4 (2-11) % Eos % (Auto) 0.6 (0-4) % Baso % (Auto) 0.6 (0-2) % Lymph # (Auto) 1.6 (1.2-4.9) X10*3/uL Glenn # (Auto) 0.5 (0.1-1.2) X10*3/uL Eos # (Auto) 0.0 (0.0-0.4) X10*3/uL Baso # (Auto) 0.0 (0.0-0.2) X10*3/uL Abs Immat Gran (auto) 0.01 (0.00-0.03) X10*3/uL Absolute Neuts (auto) 4.6 (2.0-8.3) x10*3/uL Absolute Nucleated RBC 0.000 (0.0-0.012) X10*3/uL Nucleated RBC % (auto) 0.0 (0.0-0.2) /100WBC Sodium 141 (135-145) mmol/L Potassium 3.7 (3.3-5.1) mmol/L Chloride 106 (96-108) mmol/L Carbon Dioxide 24 (22-29) mmol/L Anion Gap 15 (12-20) BUN 10 (9-16) mg/dL Creatinine 0.93 (0.5-1.4) mg/dL Estim Creat Clear Calc 145.1 Estimated GFR > 60 Random Glucose 87 (60-115) mg/dL Calcium 9.6 (8.4-10.2) mg/dL Total Bilirubin 0.7 (0.0-1.0) mg/dL Direct Bilirubin 0.2 (0.0-0.5) mg/dL AST 29 (5-37) U/L ALT 34 (0-40) U/L Alkaline Phosphatase 49 (39-117) U/L Total Protein 7.9 (6.5-8.0) g/dL Albumin 4.9 (3.5-5.0) g/dL Lipase 23 (8-78) U/L Urine Color Yellow Urine Appearance Clear Urine pH 6.5 (5.0-9.0) Ur Specific [place] 1.025 (1.005-1.025) Urine Protein Negative (Neg-Trace) mg/dL Urine Glucose (UA) Negative (Negative) mg/dL Urine Ketones 80 (Negative) mg/dL Urine Blood Negative (Negative) Urine Nitrite Negative (Negative) Ur Leukocyte Esterase Negative (Negative) External Record Review External record reviewed: Outpatient record, Prior outpatient labs and Prior outpatient radiology Tests considered The following testing was considered but not selected: renal ultrasound considered however patient's symptoms improved, low suspicion for kidney stone as they were not seen on his CT scan done 4 days ago Prescription Management I considered prescription management with: Pain Medication and Antibiotic Discharge Plan Discharge Clinical Impression: Penile pain Patient Disposition: Home, Self-Care Instructions: [facility] (ED) Additional Instructions: your blood work, urine test, and examination today were all normal and reassuring recommend tylenol and motrin for pain no heavy lifting follow up with Urology for further evaluation and treatment [facility] U[facility] will be contacting you within 2 business?days after being discharged from the Emergency?Department.? During this?phone call, they will inform you when your follow up appointment will be scheduled. If you have not received a call from [facility] Urology after 2 business?days, please call the?office at [phone]. If you develop new or worsening symptoms call [phone] or come back to the ER for further evaluation. Prescriptions: No Action ketorolac 10 mg tablet 10 mg PO Q6H PRN (Reason: pain) Qty: 20 0RF Rx Instructions: maximum total duration of 5 days from all oral, intranasal, or parenteral formulations. The patient received an intramuscular dose of Toradol here in the emergency department. omeprazole 40 mg capsule,delayed release(DR/EC) 40 mg PO DAILY Referrals: [facility] Urology Services [Provider Group] (penile pain) Interventions: ED Discharge Assessment Last Done: 03/24/25 12:15 Discharge Date/Time: 03/24/25 12:15 Print Language: Indian
[2025-03-24] MEDS: Ibuprofen 600 MG TABLET PO (09:53)
[2025-03-24] MEDS: Acetaminophen 325 MG TABLET 975 MG PO (09:54)
[2025-03-24 12:15] VITALS: BP 127/69; PULSE 69; RESP 16; TEMP 36.4; O2SAT 96
== END 2025-03-24 12:15 | disposition home or self-care (01) ==
PROVIDERS: Emergency Provider Emergency Medicine Emergency Medical Services
DX: N48.89 Other specified disorders of penis (principal); R10.30 Lower abdominal pain, unspecified
CPT/HCPCS: 36415; 80048; 80076; 81003; 83690; 85025; 99283; 99285